=== PATIENT | male | born 1940 | race Caucasian/White ===

== ENCOUNTER 2025-06-27 13:13 | Inpatient (IN) | payer MEDICARE, OTHER ==
[~2025-06-27 13:13] MED LIST: Iopamidol-370 76% 500 ML MDV (1 ML CHARGE) ONE
[2025-06-27] MEDS ORDERED: niCARdipine 25 MG/10 ML SDV ONE (14:27)
[2025-06-27 14:30] LABS: #Basophils 0.05 10x3/uL (0.0-0.2); #Eosinophils 0.12 10x3/uL (0.0-0.7); #Monocytes 1.16 10x3/uL (0.11-0.59); #Neutrophils 5.54 10x3/uL (1.40-6.50); %Basophils 0.6 % (0.0-1.0); %Eosinophils 1.5 % (0.0-10.0); %Lymphocytes 15.9 % (21.0-51.0); %Monocytes 14.1 % (0.0-10.0); %Neutrophils 67.5 % (42.0-75.0); Hematocrit 42.8 % (42.0-52.0); Hemoglobin 13.4 g/dL (14.0-18.0); Mean Corpuscular Hemoglobin 29.0 pg (27.0-31.0); Mean Corpuscular Volume 92.6 fL (78.0-98.0); Platelet Count 258 10x3/uL (130-400); Red Blood Cell (RBC) Count 4.62 mill/uL (4.70-6.10); White Blood Cell (WBC) Count 8.20 10x3/uL (4.8-10.8)
[2025-06-27] MEDS ORDERED: Tenecteplase 50 MG ONE (14:50)
[2025-06-27 15:01] LABS: INR-International Normal Ratio 1.1; Prothrombin Time 14.4 sec (12.0-14.7)
[2025-06-27 15:02] LABS: PTT 28.4 sec (22.9-36.1)
[2025-06-27 15:09] LABS: Acetaminophen Less than 10 mcg/mL (Less than 10); Salicylate Less than 8.0 mg/dL (Less than 8.0)
[2025-06-27 15:21] LABS: Chloride 106 mmol/L (98-107); Potassium 4.6 mmol/L (3.5-5.1); Sodium 139 mmol/L (136-145)
[2025-06-27 15:22] LABS: Albumin 3.5 g/dL (3.1-4.5)
[2025-06-27 15:26] LABS: Alkaline Phosphatase 82 U/L (40-110); Bilirubin, Total 0.4 mg/dL (0.3-1.2); Calc. Creatinine Clearance 0 mL/min (70-130)
[2025-06-27 15:27] LABS: BUN (Urea Nitrogen) 26 mg/dL (8.4-25.7)
[2025-06-27 15:28] LABS: ALT (SGPT) 16 U/L (Less than 45)
[2025-06-27 15:29] LABS: AST (SGOT) 21 U/L (11-34)
[2025-06-27 16:05] LABS: Anion Gap 20 mmol/L (10-20); Calcium 9.2 mg/dL (7.8-10.44); Carbon Dioxide 21 mmol/L (23-31); Globulin 3.1 g/dL (2.4-3.5); Glucose 115 mg/dL (83-110)
[2025-06-27 16:36] LABS: Actual Bicarbonate (HCO3v) 26.2 mEq/L (22-28); Analyzer IN Cardio ER; Base Excess -0.7 mEq/L (-2.0 to +3.0); Calcium, Ionized (venous) 1.14 mmol/L (1.16-1.32); Chloride (VBG) 101 mmol/L (98-106); Hematocrit-VBG 44 % (42.0-52.0); Hemoglobin (Hb) 14.9 g/dL (12.6-17.4); Potassium (VBG) 5.32 mmol/L (3.70-5.30); Sodium 141 mmol/L (133-146)
[2025-06-27] MEDS ORDERED: hydrALAZINE 20 MG/ML VIAL SLOW IVP PRN (16:36)
[2025-06-27] MEDS ORDERED: Communication Order-Pharmacy FS SCH (16:36)
[2025-06-27] MEDS ORDERED: Acetaminophen 325 MG TAB PO PRN (16:36)
[2025-06-27] MEDS ORDERED: Mag-Al 1200 mg/1200 mg/30 ML UDCUP PO PRN (16:36)
[2025-06-27] MEDS ORDERED: Glucagon 1 MG/ML KIT IM PRN (23:45)
[2025-06-27] MEDS ORDERED: Dextrose 50% Abboject 50 ML SYRINGE SLOW IVP PRN (23:45)
[2025-06-28] MEDS: Ondansetron PF 4 MG/2 ML Vial IVP SCH (06:01)
[2025-06-28 15:51] LABS: #Basophils 0.05 10x3/uL (0.0-0.2); #Eosinophils Less than 0.03 10x3/uL (0.0-0.7); #Monocytes 1.02 10x3/uL (0.11-0.59); #Neutrophils 14.11 10x3/uL (1.40-6.50); %Basophils 0.3 % (0.0-1.0); %Eosinophils 0.1 % (0.0-10.0); %Lymphocytes 5.2 % (21.0-51.0); %Monocytes 6.3 % (0.0-10.0); %Neutrophils 87.9 % (42.0-75.0); Hematocrit 44.5 % (42.0-52.0); Hemoglobin 14.5 g/dL (14.0-18.0); Mean Corpuscular Hemoglobin 29.1 pg (27.0-31.0); Mean Corpuscular Volume 89.2 fL (78.0-98.0); Platelet Count 267 10x3/uL (130-400); Red Blood Cell (RBC) Count 4.99 mill/uL (4.70-6.10); White Blood Cell (WBC) Count 16.07 10x3/uL (4.8-10.8)
[2025-06-28 16:34] LABS: ALT (SGPT) 15 U/L (Less than 45); AST (SGOT) 27 U/L (11-34); Albumin 3.8 g/dL (3.1-4.5); Alkaline Phosphatase 88 U/L (40-110); Anion Gap 17 mmol/L (10-20); BUN (Urea Nitrogen) 20 mg/dL (8.4-25.7); Bilirubin, Total 0.7 mg/dL (0.3-1.2); Calc. Creatinine Clearance 83 mL/min (70-130); Calcium 9.9 mg/dL (7.8-10.44); Carbon Dioxide 22 mmol/L (23-31); Chloride 105 mmol/L (98-107); Globulin 3.9 g/dL (2.4-3.5); Glucose 124 mg/dL (83-110); Potassium 3.9 mmol/L (3.5-5.1); Sodium 140 mmol/L (136-145)
[2025-06-28] MEDS: Sodium Chloride 256 MEQ in Sterile Water 936 ML IV SCH (17:34)
[2025-06-28] MEDS: niCARdipine 25 MG in Sodium Chloride 0.9% 250 ML 250 ML IVPB PRN (17:39)
[2025-06-29 00:10] LABS: Chloride 105 mmol/L (98-107)
[2025-06-29 00:11] LABS: Calcium 9.9 mg/dL (7.8-10.44); Potassium 3.6 mmol/L (3.5-5.1); Sodium 141 mmol/L (136-145)
[2025-06-29 00:12] LABS: Glucose 139 mg/dL (83-110)
[2025-06-29 00:13] LABS: Anion Gap 17 mmol/L (10-20); Carbon Dioxide 23 mmol/L (23-31)
[2025-06-29 00:15] LABS: Calc. Creatinine Clearance 92 mL/min (70-130)
[2025-06-29 00:16] LABS: BUN (Urea Nitrogen) 17 mg/dL (8.4-25.7)
[2025-06-29] MEDS: diphenhydrAMINE 50 MG/ML VIAL IVP SCH (01:44)
[2025-06-29 05:12] LABS: Anion Gap 18 mmol/L (10-20); BUN (Urea Nitrogen) 19 mg/dL (8.4-25.7); Calc. Creatinine Clearance 88 mL/min (70-130); Calcium 10.0 mg/dL (7.8-10.44); Carbon Dioxide 22 mmol/L (23-31); Cardiac Risk 3.1 (Less than 4.5); Chloride 107 mmol/L (98-107); Cholesterol 172 mg/dl (< 200 Desired); Glucose 120 mg/dL (83-110); HDL Cholesterol 55 mg/dL (>60 Neg Risk); LDL Cholesterol, Calculated 106 mg/dL; Potassium 3.7 mmol/L (3.5-5.1); Sodium 143 mmol/L (136-145); Triglycerides 56 mg/dL (Less than 150)
[2025-06-29] MEDS: Lidocaine 1% (PF) 30 ML VIAL ONE (07:28)
[2025-06-29] MEDS: Water For Inject, Bacteriostat 30 ML ONE (09:00)
[2025-06-29 09:51] LABS: Anion Gap 18 mmol/L (10-20); BUN (Urea Nitrogen) 19 mg/dL (8.4-25.7); Calc. Creatinine Clearance 90 mL/min (70-130); Calcium 9.6 mg/dL (7.8-10.44); Carbon Dioxide 21 mmol/L (23-31); Chloride 109 mmol/L (98-107); Glucose 119 mg/dL (83-110); Potassium 3.9 mmol/L (3.5-5.1); Sodium 144 mmol/L (136-145)
[2025-06-29] MEDS: Pantoprazole 40 MG VIAL IVP SCH (11:11)
[2025-06-29 17:14] LABS: Anion Gap 12 mmol/L (10-20); BUN (Urea Nitrogen) 15 mg/dL (8.4-25.7); Calc. Creatinine Clearance 105 mL/min (70-130); Calcium 9.5 mg/dL (7.8-10.44); Carbon Dioxide 23 mmol/L (23-31); Chloride 112 mmol/L (98-107); Glucose 98 mg/dL (83-110); Potassium 3.4 mmol/L (3.5-5.1); Sodium 144 mmol/L (136-145)
[2025-06-29 17:15] LABS: Osmolality, Serum 298 mOsm/kg (280-301)
[2025-06-29 22:09] LABS: Anion Gap 18 mmol/L (10-20); BUN (Urea Nitrogen) 14 mg/dL (8.4-25.7); Calc. Creatinine Clearance 100 mL/min (70-130); Calcium 9.5 mg/dL (7.8-10.44); Carbon Dioxide 18 mmol/L (23-31); Chloride 112 mmol/L (98-107); Glucose 86 mg/dL (83-110); Potassium 3.6 mmol/L (3.5-5.1); Sodium 144 mmol/L (136-145)
[2025-06-30 00:53] LABS: Actual Bicarbonate (HCO3a) 22.3 mEq/L (22-28); Base Excess (BEa) 0.4 mEq/L (-2.0 to +3.0); CO2 Tension 29.1 mmHg (35.0-45.0); Calcium, Ionized (arterial) 1.20 mmol/L (1.12-1.30); Hematocrit-ABG 44 % (42.0-52.0); Hemoglobin (Hb) 15.0 g/dL (14.0-18.0); Potassium - ABG Lab 3.17 mmol/L (3.70-5.30); pH, Arterial 7.503 (7.35-7.45)
[2025-06-30 00:56] LABS: O2 Tension (PaO2), arterial 59.5 mmHg (> 60.0); Puncture Site Left Radial artery
[2025-06-30] MEDS: diphenhydrAMINE 50 MG/ML VIAL IVP SCH (01:16)
[2025-06-30 01:55] LABS: Osmolality, Serum 298 mOsm/kg (280-301)
[2025-06-30 03:50] LABS: Anion Gap 17 mmol/L (10-20); BUN (Urea Nitrogen) 16 mg/dL (8.4-25.7); Calc. Creatinine Clearance 90 mL/min (70-130); Calcium 9.6 mg/dL (7.8-10.44); Carbon Dioxide 18 mmol/L (23-31); Chloride 114 mmol/L (98-107); Glucose 94 mg/dL (83-110); Potassium 3.4 mmol/L (3.5-5.1); Sodium 146 mmol/L (136-145)
[2025-06-30 07:38] LABS: Osmolality, Serum 305 mOsm/kg (280-301)
[2025-06-30] MEDS ORDERED: Pharmacy to Dose: VANCOMYCIN IVPB PRN (08:57)
[2025-06-30] MEDS: cefTRIAXone\\ROCEPHIN 1 GM in Sodium Chloride 0.9% 100 ML IVPB SCH (09:27)
[2025-06-30] MEDS: Acetylcysteine 20% 200 MG/ML 30 ML VIAL INH SCH ×2 (09:30→13:14)
[2025-06-30 10:22] LABS: Anion Gap 16 mmol/L (10-20); BUN (Urea Nitrogen) 21 mg/dL (8.4-25.7); Calc. Creatinine Clearance 86 mL/min (70-130); Calcium 9.2 mg/dL (7.8-10.44); Carbon Dioxide 18 mmol/L (23-31); Chloride 116 mmol/L (98-107); Glucose 113 mg/dL (83-110); Potassium 3.2 mmol/L (3.5-5.1); Sodium 147 mmol/L (136-145)
[2025-06-30] MEDS: Potassium Chloride 20 MEQ in Premix 1 BAG IVPB SCH ×2 (10:28→19:24)
[2025-06-30] MEDS: VANCOMYCIN 1.75 GM/350 ML BAG 1.75 GM in Premix 1 BAG IVPB SCH (12:33)
[2025-06-30 14:05] LABS: Osmolality, Serum 310 mOsm/kg (280-301)
[2025-06-30 17:41] LABS: Potassium 3.2 mmol/L (3.5-5.1)
[2025-06-30 20:09] LABS: Osmolality, Serum 312 mOsm/kg (280-301)
[2025-06-30] MEDS: Vancomycin 1 GM in Premix 1 BAG IVPB SCH (21:13)
[2025-07-01 01:39] LABS: Osmolality, Serum 320 mOsm/kg (280-301)
[2025-07-01] MEDS: niCARdipine 25 MG in Sodium Chloride 0.9% 250 ML 250 ML IVPB PRN (05:23)
[2025-07-01 07:45] LABS: Vancomycin, Random 20.3 ug/mL (See Comment)
[2025-07-01 07:46] LABS: Calc. Creatinine Clearance 64.0 mL/min (70-130)
[2025-07-01 08:19] LABS: Osmolality, Serum 322 mOsm/kg (280-301)
[2025-07-01 09:47] LABS: Hematocrit 40.6 % (42.0-52.0); Hemoglobin 12.3 g/dL (14.0-18.0); Mean Corpuscular Hemoglobin 28.1 pg (27.0-31.0); Mean Corpuscular Volume 92.9 fL (78.0-98.0); Platelet Count 333 10x3/uL (130-400); Red Blood Cell (RBC) Count 4.37 mill/uL (4.70-6.10); White Blood Cell (WBC) Count 27.71 10x3/uL (4.8-10.8)
[2025-07-01 10:11] LABS: Anion Gap 15 mmol/L (10-20); BUN (Urea Nitrogen) 32 mg/dL (8.4-25.7); Calc. Creatinine Clearance 65 mL/min (70-130); Calcium 8.9 mg/dL (7.8-10.44); Carbon Dioxide 16 mmol/L (23-31); Chloride 126 mmol/L (98-107); Glucose 148 mg/dL (83-110); Potassium 3.0 mmol/L (3.5-5.1); Sodium 154 mmol/L (136-145)
[2025-07-01 10:20] LABS: Burr Cells SLIGHT = 2-5 cells HPF (0-1); Macrocytosis SLIGHT = 6-15 cells HPF (0-5); Platelet Adequacy Comment Platelets Normal; Polychromasia SLIGHT = 2-3 cells HPF (0-2)
[2025-07-01] MEDS: Vancomycin 1 GM/200 ML (FROZEN) BAG ONE (12:38)
[2025-07-01 13:24] LABS: Osmolality, Serum 323 mOsm/kg (280-301)
[2025-07-01] MEDS: Potassium Phosphate 22 MMOL in Sodium Chloride 0.9% 250 ML 250 ML IVPB SCH (14:42)
[2025-07-01 17:08] LABS: Anion Gap 14 mmol/L (10-20); BUN (Urea Nitrogen) 31 mg/dL (8.4-25.7); Calc. Creatinine Clearance 73 mL/min (70-130); Calcium 8.8 mg/dL (7.8-10.44); Carbon Dioxide 16 mmol/L (23-31); Chloride 127 mmol/L (98-107); Glucose 115 mg/dL (83-110); Potassium 2.9 mmol/L (3.5-5.1); Sodium 154 mmol/L (136-145)
[2025-07-01] MEDS: Potassium Chloride 20 MEQ in Premix 1 BAG IVPB SCH (18:32)
[2025-07-01] MEDS ORDERED: Mag-Al 1200 mg/1200 mg/30 ML UDCUP PER TUBE PRN (20:54)
[2025-07-01] MEDS: Aspirin 325 MG TAB PER TUBE SCH (21:23)
[2025-07-02 04:32] LABS: Hematocrit 38.0 % (42.0-52.0); Hemoglobin 12.1 g/dL (14.0-18.0); Mean Corpuscular Hemoglobin 28.5 pg (27.0-31.0); Mean Corpuscular Volume 89.4 fL (78.0-98.0); Platelet Count 320 10x3/uL (130-400); Red Blood Cell (RBC) Count 4.25 mill/uL (4.70-6.10); White Blood Cell (WBC) Count 26.03 10x3/uL (4.8-10.8)
[2025-07-02 04:42] LABS: Vancomycin, Random 14.4 ug/mL (See Comment)
[2025-07-02 04:52] LABS: ALT (SGPT) 16 U/L (Less than 45); AST (SGOT) 25 U/L (11-34); Albumin 2.4 g/dL (3.1-4.5); Alkaline Phosphatase 80 U/L (40-110); Anion Gap 15 mmol/L (10-20); BUN (Urea Nitrogen) 27 mg/dL (8.4-25.7); Bilirubin, Total 1.2 mg/dL (0.3-1.2); Calc. Creatinine Clearance 79 mL/min (70-130); Calcium 9.0 mg/dL (7.8-10.44); Carbon Dioxide 16 mmol/L (23-31); Chloride 127 mmol/L (98-107); Globulin 3.3 g/dL (2.4-3.5); Glucose 105 mg/dL (83-110); Magnesium 1.8 mg/dL (1.6-2.6); Potassium 3.8 mmol/L (3.5-5.1); Sodium 154 mmol/L (136-145)
[2025-07-02 04:57] LABS: Anisocytosis SLIGHT = 6-15 cells HPF (0-5); Platelet Adequacy Comment Platelets Normal
[2025-07-02] MEDS: Potassium Phosphate 15 MMOL in Sodium Chloride 0.9% 250 ML 250 ML IVPB SCH (05:28)
[2025-07-02] MEDS: Magnesium 2 GM/50 ML(in water) 2 GM in Premix 1 BAG IVPB SCH (08:25)
[2025-07-02] MEDS: Vancomycin 1.25 GM / NS 250 ML VIAL-2-BAG IVPB SCH (11:40)
[2025-07-02] MEDS: Losartan 25 MG TAB PER TUBE SCH (17:37)
[2025-07-03 04:20] LABS: #Basophils 0.04 10x3/uL (0.0-0.2); #Eosinophils 0.10 10x3/uL (0.0-0.7); #Monocytes 1.28 10x3/uL (0.11-0.59); #Neutrophils 20.90 10x3/uL (1.40-6.50); %Basophils 0.2 % (0.0-1.0); %Eosinophils 0.4 % (0.0-10.0); %Lymphocytes 3.9 % (21.0-51.0); %Monocytes 5.5 % (0.0-10.0); %Neutrophils 89.3 % (42.0-75.0); Hematocrit 39.0 % (42.0-52.0); Hemoglobin 12.8 g/dL (14.0-18.0); Mean Corpuscular Hemoglobin 29.1 pg (27.0-31.0); Mean Corpuscular Volume 88.6 fL (78.0-98.0); Platelet Count 343 10x3/uL (130-400); Red Blood Cell (RBC) Count 4.40 mill/uL (4.70-6.10); White Blood Cell (WBC) Count 23.39 10x3/uL (4.8-10.8)
[2025-07-03 04:40] LABS: Anion Gap 13 mmol/L (10-20); BUN (Urea Nitrogen) 30 mg/dL (8.4-25.7); Calc. Creatinine Clearance 80 mL/min (70-130); Calcium 9.0 mg/dL (7.8-10.44); Carbon Dioxide 19 mmol/L (23-31); Chloride 125 mmol/L (98-107); Glucose 130 mg/dL (83-110); Magnesium 2.0 mg/dL (1.6-2.6); Potassium 3.3 mmol/L (3.5-5.1); Sodium 154 mmol/L (136-145)
[2025-07-03] MEDS: Losartan 25 MG TAB PER TUBE SCH (08:20)
[2025-07-03] MEDS: Magnesium 2 GM/50 ML(in water) 2 GM in Premix 1 BAG IVPB SCH (10:20)
[2025-07-03] MEDS: hydrALAZINE 20 MG/ML VIAL SLOW IVP PRN (12:14)
[2025-07-03] MEDS ORDERED: PHOS-NAK 1 PKT PACK PO PRN (13:45)
[2025-07-03] MEDS: Acetylcysteine 20% 200 MG/ML 30 ML VIAL INH SCH (14:18)
[2025-07-03] MEDS: Potassium Chloride 20 MEQ in Premix 1 BAG IVPB PRN (14:49)
[2025-07-03] MEDS: Etomidate 40 MG (20 mL) VIAL IVP SCH (20:30)
[2025-07-03] MEDS ORDERED: Etomidate 40 MG (20 mL) VIAL ONE (20:33)
[2025-07-03] MEDS ORDERED: Propofol BOLUS 1,000 MG/100 ML VIAL IV PRN (20:45)
[2025-07-03] MEDS ORDERED: NOREPINEPHRINE 8 MG/250 ML-D5W 250 ML IVPB SCH (20:45)
[2025-07-03] MEDS ORDERED: DISCONTINUE PREVIOUS NARCOTIC PAIN MEDICATIONS AND BENZODIAZEPINES FS SCH (20:45)
[2025-07-03] MEDS ORDERED: Fentanyl BOLUS 100 ML IVPB PRN (20:45)
[2025-07-03 21:17] LABS: Actual Bicarbonate (HCO3a) 22.3 mEq/L (22-28); Base Excess (BEa) -2.1 mEq/L (-2.0 to +3.0); CO2 Tension 37.2 mmHg (35.0-45.0); Calcium, Ionized (arterial) 1.20 mmol/L (1.12-1.30); Hematocrit-ABG 41 % (42.0-52.0); Hemoglobin (Hb) 14.1 g/dL (14.0-18.0); O2 Tension (PaO2), arterial 89.7 mmHg (> 60.0); Potassium - ABG Lab 3.78 mmol/L (3.70-5.30); pH, Arterial 7.396 (7.35-7.45)
[2025-07-03 21:21] LABS: Puncture Site Right Radial artery
[2025-07-03] MEDS: Norepinephrine 8 MG/0.9% NS 250 ML IVPB SCH (21:35)
[2025-07-04] MEDS: Albumin 25% 25 GM (100 mL) BOT IVPB SCH (04:26)
[2025-07-04 05:52] LABS: #Basophils 0.04 10x3/uL (0.0-0.2); #Eosinophils 0.15 10x3/uL (0.0-0.7); #Monocytes 1.53 10x3/uL (0.11-0.59); #Neutrophils 13.14 10x3/uL (1.40-6.50); %Basophils 0.2 % (0.0-1.0); %Eosinophils 0.9 % (0.0-10.0); %Lymphocytes 6.3 % (21.0-51.0); %Monocytes 9.5 % (0.0-10.0); %Neutrophils 81.9 % (42.0-75.0); Hematocrit 36.4 % (42.0-52.0); Hemoglobin 11.3 g/dL (14.0-18.0); Mean Corpuscular Hemoglobin 28.3 pg (27.0-31.0); Mean Corpuscular Volume 91.2 fL (78.0-98.0); Platelet Count 333 10x3/uL (130-400); Red Blood Cell (RBC) Count 3.99 mill/uL (4.70-6.10); White Blood Cell (WBC) Count 16.07 10x3/uL (4.8-10.8)
[2025-07-04 06:20] LABS: Vancomycin, Random 14.8 ug/mL (See Comment)
[2025-07-04 06:22] LABS: Anion Gap 10 mmol/L (10-20); BUN (Urea Nitrogen) 33 mg/dL (8.4-25.7); Calc. Creatinine Clearance 67 mL/min (70-130); Calcium 8.6 mg/dL (7.8-10.44); Carbon Dioxide 25 mmol/L (23-31); Chloride 122 mmol/L (98-107); Glucose 101 mg/dL (83-110); Potassium 3.5 mmol/L (3.5-5.1); Sodium 153 mmol/L (136-145)
[2025-07-04] MEDS: Lidocaine 1% (PF) 30 ML VIAL ONE (09:15)
[2025-07-04] MEDS: Vancomycin 1.5 GM / NS 500ML VIAL-2-BAG IVPB SCH (11:45)
[2025-07-04] MEDS: Lidocaine 1% (PF) 30 ML VIAL FS SCH (11:45)
[2025-07-04 15:59] LABS: BF RBC Count - Manual 43 /cu.mm; BF WBC/Nonhematics Ct.-Manual 530 /cu.mm
[2025-07-04 17:24] LABS: BF Segmented Neutrophils 74 %; Cell Count Non Hematic 6 %
[2025-07-04] MEDS: Glycopyrrolate 0.4 MG/ 2 ML VIAL SLOW IVP SCH (22:03)
[2025-07-04] MEDS: Scopolamine 1 mg/72 hour Patch TD SCH (23:04)
[2025-07-05 04:48] LABS: Vancomycin, Random 20.1 ug/mL (See Comment)
[2025-07-05 08:37] LABS: #Basophils 0.05 10x3/uL (0.0-0.2); #Eosinophils 0.45 10x3/uL (0.0-0.7); #Monocytes 1.73 10x3/uL (0.11-0.59); #Neutrophils 11.24 10x3/uL (1.40-6.50); %Basophils 0.3 % (0.0-1.0); %Eosinophils 3.1 % (0.0-10.0); %Lymphocytes 6.8 % (21.0-51.0); %Monocytes 11.8 % (0.0-10.0); %Neutrophils 76.4 % (42.0-75.0); Hematocrit 38.7 % (42.0-52.0); Hemoglobin 11.7 g/dL (14.0-18.0); Mean Corpuscular Hemoglobin 28.3 pg (27.0-31.0); Mean Corpuscular Volume 93.7 fL (78.0-98.0); Platelet Count 238 10x3/uL (130-400); Red Blood Cell (RBC) Count 4.13 mill/uL (4.70-6.10); White Blood Cell (WBC) Count 14.70 10x3/uL (4.8-10.8)
[2025-07-05 09:07] LABS: ALT (SGPT) 47 U/L (Less than 45); AST (SGOT) 60 U/L (11-34); Albumin 2.0 g/dL (3.1-4.5); Alkaline Phosphatase 236 U/L (40-110); Anion Gap 13 mmol/L (10-20); BUN (Urea Nitrogen) 33 mg/dL (8.4-25.7); Bilirubin, Total 0.6 mg/dL (0.3-1.2); Calc. Creatinine Clearance 70 mL/min (70-130); Calcium 8.6 mg/dL (7.8-10.44); Carbon Dioxide 21 mmol/L (23-31); Chloride 121 mmol/L (98-107); Globulin 3.4 g/dL (2.4-3.5); Glucose 94 mg/dL (83-110); Potassium 4.0 mmol/L (3.5-5.1); Sodium 151 mmol/L (136-145)
[2025-07-05] MEDS: Vancomycin 1.25 GM / NS 250 ML VIAL-2-BAG IVPB SCH (11:16)
[2025-07-05] MEDS: Senokot S 8.6-50 MG TAB PER TUBE SCH ×2 (11:21)
[2025-07-05] MEDS: Glycopyrrolate 0.4 MG/ 2 ML VIAL SLOW IVP SCH (22:08)
[2025-07-06 05:15] LABS: #Basophils 0.04 10x3/uL (0.0-0.2); #Eosinophils 0.49 10x3/uL (0.0-0.7); #Monocytes 1.53 10x3/uL (0.11-0.59); #Neutrophils 7.10 10x3/uL (1.40-6.50); %Basophils 0.4 % (0.0-1.0); %Eosinophils 4.7 % (0.0-10.0); %Lymphocytes 9.9 % (21.0-51.0); %Monocytes 14.7 % (0.0-10.0); %Neutrophils 68.5 % (42.0-75.0); Hematocrit 34.4 % (42.0-52.0); Hemoglobin 10.4 g/dL (14.0-18.0); Mean Corpuscular Hemoglobin 28.3 pg (27.0-31.0); Mean Corpuscular Volume 93.5 fL (78.0-98.0); Platelet Count 210 10x3/uL (130-400); Red Blood Cell (RBC) Count 3.68 mill/uL (4.70-6.10); White Blood Cell (WBC) Count 10.38 10x3/uL (4.8-10.8)
[2025-07-06 05:33] LABS: Anion Gap 14 mmol/L (10-20); BUN (Urea Nitrogen) 33 mg/dL (8.4-25.7); Calc. Creatinine Clearance 70 mL/min (70-130); Calcium 8.2 mg/dL (7.8-10.44); Carbon Dioxide 20 mmol/L (23-31); Chloride 118 mmol/L (98-107); Glucose 104 mg/dL (83-110); Potassium 3.8 mmol/L (3.5-5.1); Sodium 148 mmol/L (136-145)
[2025-07-06] MEDS: Sodium Chloride 256 MEQ in Sterile Water 936 ML IV SCH (09:32)
[2025-07-06] MEDS: DC Sedation Protocol FS ONE (12:08)
[2025-07-06 12:55] LABS: Anion Gap 12 mmol/L (10-20); BUN (Urea Nitrogen) 33 mg/dL (8.4-25.7); Calc. Creatinine Clearance 71 mL/min (70-130); Calcium 8.3 mg/dL (7.8-10.44); Carbon Dioxide 21 mmol/L (23-31); Chloride 119 mmol/L (98-107); Glucose 96 mg/dL (83-110); Potassium 3.8 mmol/L (3.5-5.1); Sodium 148 mmol/L (136-145)
[2025-07-06 18:29] LABS: Anion Gap 12 mmol/L (10-20); BUN (Urea Nitrogen) 35 mg/dL (8.4-25.7); Calc. Creatinine Clearance 74 mL/min (70-130); Calcium 8.6 mg/dL (7.8-10.44); Carbon Dioxide 21 mmol/L (23-31); Chloride 118 mmol/L (98-107); Glucose 103 mg/dL (83-110); Potassium 3.8 mmol/L (3.5-5.1); Sodium 147 mmol/L (136-145)
[2025-07-06] MEDS: Etomidate 40 MG (20 mL) VIAL IVP SCH (18:44)
[2025-07-06] MEDS: Ventilator Sedation Protocol 1 EACH FS ONE (18:46)
[2025-07-06] MEDS ORDERED: Propofol BOLUS 1,000 MG/100 ML VIAL IV PRN (19:00)
[2025-07-06] MEDS ORDERED: DISCONTINUE PREVIOUS NARCOTIC PAIN MEDICATIONS AND BENZODIAZEPINES FS SCH (19:00)
[2025-07-06] MEDS ORDERED: Fentanyl BOLUS 100 ML IVPB PRN (19:00)
[2025-07-06 20:14] LABS: Actual Bicarbonate (HCO3a) 19.5 mEq/L (22-28); Base Excess (BEa) -3.5 mEq/L (-2.0 to +3.0); CO2 Tension 28.8 mmHg (35.0-45.0); Calcium, Ionized (arterial) 1.17 mmol/L (1.12-1.30); Hematocrit-ABG 34 % (42.0-52.0); Hemoglobin (Hb) 11.6 g/dL (14.0-18.0); O2 Tension (PaO2), arterial 66.3 mmHg (> 60.0); Potassium - ABG Lab 3.57 mmol/L (3.70-5.30); pH, Arterial 7.448 (7.35-7.45)
[2025-07-06 20:15] LABS: Puncture Site Right Radial artery
[2025-07-06] MEDS: Enoxaparin 40 MG (0.4 mL) SYRINGE SC SCH (21:45)
[2025-07-07 01:02] LABS: Anion Gap 11 mmol/L (10-20); BUN (Urea Nitrogen) 35 mg/dL (8.4-25.7); Calc. Creatinine Clearance 74 mL/min (70-130); Calcium 8.3 mg/dL (7.8-10.44); Carbon Dioxide 21 mmol/L (23-31); Chloride 119 mmol/L (98-107); Glucose 114 mg/dL (83-110); Potassium 3.3 mmol/L (3.5-5.1); Sodium 148 mmol/L (136-145)
[2025-07-07 04:47] LABS: #Basophils 0.03 10x3/uL (0.0-0.2); #Eosinophils 0.43 10x3/uL (0.0-0.7); #Monocytes 1.32 10x3/uL (0.11-0.59); #Neutrophils 7.93 10x3/uL (1.40-6.50); %Basophils 0.3 % (0.0-1.0); %Eosinophils 3.9 % (0.0-10.0); %Lymphocytes 9.2 % (21.0-51.0); %Monocytes 12.1 % (0.0-10.0); %Neutrophils 72.8 % (42.0-75.0); Hematocrit 31.2 % (42.0-52.0); Hemoglobin 9.5 g/dL (14.0-18.0); Mean Corpuscular Hemoglobin 28.4 pg (27.0-31.0); Mean Corpuscular Volume 93.4 fL (78.0-98.0); Platelet Count 231 10x3/uL (130-400); Red Blood Cell (RBC) Count 3.34 mill/uL (4.70-6.10); White Blood Cell (WBC) Count 10.90 10x3/uL (4.8-10.8)
[2025-07-07 06:32] LABS: Anion Gap 11 mmol/L (10-20); BUN (Urea Nitrogen) 37 mg/dL (8.4-25.7); Calc. Creatinine Clearance 72 mL/min (70-130); Calcium 8.0 mg/dL (7.8-10.44); Carbon Dioxide 22 mmol/L (23-31); Chloride 120 mmol/L (98-107); Glucose 109 mg/dL (83-110); Potassium 3.5 mmol/L (3.5-5.1); Sodium 149 mmol/L (136-145)
[2025-07-07] MEDS: Sodium Chloride 256 MEQ in Sterile Water 936 ML IV SCH (10:24)
[2025-07-07] MEDS: Bisacodyl 10 MG SUPP PR PRN (18:00)
[2025-07-07 18:21] LABS: Anion Gap 11 mmol/L (10-20); BUN (Urea Nitrogen) 33 mg/dL (8.4-25.7); Calc. Creatinine Clearance 77 mL/min (70-130); Calcium 8.3 mg/dL (7.8-10.44); Carbon Dioxide 20 mmol/L (23-31); Chloride 121 mmol/L (98-107); Glucose 132 mg/dL (83-110); Potassium 3.8 mmol/L (3.5-5.1); Sodium 148 mmol/L (136-145)
[2025-07-08 01:13] LABS: Anion Gap 11 mmol/L (10-20); BUN (Urea Nitrogen) 34 mg/dL (8.4-25.7); Calc. Creatinine Clearance 74 mL/min (70-130); Calcium 8.1 mg/dL (7.8-10.44); Carbon Dioxide 21 mmol/L (23-31); Chloride 121 mmol/L (98-107); Glucose 111 mg/dL (83-110); Potassium 3.8 mmol/L (3.5-5.1); Sodium 149 mmol/L (136-145)
[2025-07-08 04:56] LABS: #Basophils 0.03 10x3/uL (0.0-0.2); #Eosinophils 0.44 10x3/uL (0.0-0.7); #Monocytes 1.16 10x3/uL (0.11-0.59); #Neutrophils 5.59 10x3/uL (1.40-6.50); %Basophils 0.3 % (0.0-1.0); %Eosinophils 5.1 % (0.0-10.0); %Lymphocytes 11.8 % (21.0-51.0); %Monocytes 13.5 % (0.0-10.0); %Neutrophils 65.0 % (42.0-75.0); Hematocrit 30.0 % (42.0-52.0); Hemoglobin 9.1 g/dL (14.0-18.0); Mean Corpuscular Hemoglobin 28.5 pg (27.0-31.0); Mean Corpuscular Volume 94.0 fL (78.0-98.0); Platelet Count 235 10x3/uL (130-400); Red Blood Cell (RBC) Count 3.19 mill/uL (4.70-6.10); White Blood Cell (WBC) Count 8.61 10x3/uL (4.8-10.8)
[2025-07-08 06:11] LABS: Anion Gap 11 mmol/L (10-20); BUN (Urea Nitrogen) 34 mg/dL (8.4-25.7); Calc. Creatinine Clearance 80 mL/min (70-130); Calcium 8.2 mg/dL (7.8-10.44); Carbon Dioxide 20 mmol/L (23-31); Chloride 122 mmol/L (98-107); Glucose 117 mg/dL (83-110); Potassium 3.8 mmol/L (3.5-5.1); Sodium 149 mmol/L (136-145)
[2025-07-08 12:30] LABS: Anion Gap 14 mmol/L (10-20); BUN (Urea Nitrogen) 33 mg/dL (8.4-25.7); Calc. Creatinine Clearance 79 mL/min (70-130); Calcium 8.3 mg/dL (7.8-10.44); Carbon Dioxide 20 mmol/L (23-31); Chloride 122 mmol/L (98-107); Glucose 126 mg/dL (83-110); Potassium 3.8 mmol/L (3.5-5.1); Sodium 152 mmol/L (136-145)
[2025-07-08 18:41] LABS: Anion Gap 12 mmol/L (10-20); BUN (Urea Nitrogen) 31 mg/dL (8.4-25.7); Calc. Creatinine Clearance 80 mL/min (70-130); Calcium 8.2 mg/dL (7.8-10.44); Carbon Dioxide 20 mmol/L (23-31); Chloride 122 mmol/L (98-107); Glucose 118 mg/dL (83-110); Potassium 3.7 mmol/L (3.5-5.1); Sodium 150 mmol/L (136-145)
[2025-07-08] MEDS: Losartan 25 MG TAB PER TUBE SCH (20:08)
[2025-07-09 01:12] LABS: Anion Gap 11 mmol/L (10-20); BUN (Urea Nitrogen) 29 mg/dL (8.4-25.7); Calc. Creatinine Clearance 87 mL/min (70-130); Calcium 8.3 mg/dL (7.8-10.44); Carbon Dioxide 20 mmol/L (23-31); Chloride 121 mmol/L (98-107); Glucose 111 mg/dL (83-110); Potassium 3.8 mmol/L (3.5-5.1); Sodium 148 mmol/L (136-145)
[2025-07-09 04:21] LABS: #Basophils 0.04 10x3/uL (0.0-0.2); #Eosinophils 0.36 10x3/uL (0.0-0.7); #Monocytes 1.20 10x3/uL (0.11-0.59); #Neutrophils 7.29 10x3/uL (1.40-6.50); %Basophils 0.4 % (0.0-1.0); %Eosinophils 3.5 % (0.0-10.0); %Lymphocytes 11.3 % (21.0-51.0); %Monocytes 11.8 % (0.0-10.0); %Neutrophils 71.4 % (42.0-75.0); Hematocrit 30.9 % (42.0-52.0); Hemoglobin 9.1 g/dL (14.0-18.0); Mean Corpuscular Hemoglobin 27.7 pg (27.0-31.0); Mean Corpuscular Volume 94.2 fL (78.0-98.0); Platelet Count 249 10x3/uL (130-400); Red Blood Cell (RBC) Count 3.28 mill/uL (4.70-6.10); White Blood Cell (WBC) Count 10.20 10x3/uL (4.8-10.8)
[2025-07-09 05:17] LABS: Anion Gap 12 mmol/L (10-20); BUN (Urea Nitrogen) 30 mg/dL (8.4-25.7); Calc. Creatinine Clearance 80 mL/min (70-130); Calcium 8.2 mg/dL (7.8-10.44); Carbon Dioxide 21 mmol/L (23-31); Chloride 120 mmol/L (98-107); Glucose 114 mg/dL (83-110); Potassium 3.7 mmol/L (3.5-5.1); Sodium 149 mmol/L (136-145)
[2025-07-10 03:46] LABS: #Basophils 0.04 10x3/uL (0.0-0.2); #Eosinophils 0.44 10x3/uL (0.0-0.7); #Monocytes 1.04 10x3/uL (0.11-0.59); #Neutrophils 5.88 10x3/uL (1.40-6.50); %Basophils 0.5 % (0.0-1.0); %Eosinophils 5.1 % (0.0-10.0); %Lymphocytes 14.2 % (21.0-51.0); %Monocytes 11.9 % (0.0-10.0); %Neutrophils 67.5 % (42.0-75.0); Hematocrit 29.6 % (42.0-52.0); Hemoglobin 8.8 g/dL (14.0-18.0); Mean Corpuscular Hemoglobin 28.3 pg (27.0-31.0); Mean Corpuscular Volume 95.2 fL (78.0-98.0); Platelet Count 242 10x3/uL (130-400); Red Blood Cell (RBC) Count 3.11 mill/uL (4.70-6.10); White Blood Cell (WBC) Count 8.71 10x3/uL (4.8-10.8)
[2025-07-10 04:14] LABS: Anion Gap 10 mmol/L (10-20); BUN (Urea Nitrogen) 27 mg/dL (8.4-25.7); Calc. Creatinine Clearance 86 mL/min (70-130); Calcium 8.0 mg/dL (7.8-10.44); Carbon Dioxide 20 mmol/L (23-31); Chloride 122 mmol/L (98-107); Glucose 93 mg/dL (83-110); Potassium 3.8 mmol/L (3.5-5.1); Sodium 148 mmol/L (136-145)
[2025-07-10] MEDS: Lidocaine 1% w/Epinephrine 1:100K 20 ML VIAL ONE (09:40)
[2025-07-10] MEDS ORDERED: fentaNYL PF 100 MCG/2 ML SYRINGE ONE (09:43)
[2025-07-10] MEDS: Lidocaine 1% w/Epinephrine 1:100K 20 ML VIAL FS SCH (10:34)
[2025-07-11 05:28] LABS: #Basophils 0.07 10x3/uL (0.0-0.2); #Eosinophils 0.37 10x3/uL (0.0-0.7); #Monocytes 0.91 10x3/uL (0.11-0.59); #Neutrophils 5.71 10x3/uL (1.40-6.50); %Basophils 0.9 % (0.0-1.0); %Eosinophils 4.6 % (0.0-10.0); %Lymphocytes 11.8 % (21.0-51.0); %Monocytes 11.3 % (0.0-10.0); %Neutrophils 70.8 % (42.0-75.0); Hematocrit 31.4 % (42.0-52.0); Hemoglobin 9.3 g/dL (14.0-18.0); Mean Corpuscular Hemoglobin 28.6 pg (27.0-31.0); Mean Corpuscular Volume 96.6 fL (78.0-98.0); Platelet Count 239 10x3/uL (130-400); Red Blood Cell (RBC) Count 3.25 mill/uL (4.70-6.10); White Blood Cell (WBC) Count 8.06 10x3/uL (4.8-10.8)
[2025-07-11 05:48] LABS: Anion Gap 10 mmol/L (10-20); BUN (Urea Nitrogen) 23 mg/dL (8.4-25.7); Calc. Creatinine Clearance 94 mL/min (70-130); Calcium 8.3 mg/dL (7.8-10.44); Carbon Dioxide 21 mmol/L (23-31); Chloride 120 mmol/L (98-107); Glucose 90 mg/dL (83-110); Potassium 3.9 mmol/L (3.5-5.1); Sodium 147 mmol/L (136-145)
[2025-07-12] MEDS: Mupirocin 1 GM TUBE NASAL DECOLONIZATION NASAL SCH (09:30)
[2025-07-12 13:07] LABS: Anion Gap 12 mmol/L (10-20); BUN (Urea Nitrogen) 23 mg/dL (8.4-25.7); Calc. Creatinine Clearance 97 mL/min (70-130); Calcium 8.3 mg/dL (7.8-10.44); Carbon Dioxide 22 mmol/L (23-31); Chloride 116 mmol/L (98-107); Glucose 116 mg/dL (83-110); Potassium 3.3 mmol/L (3.5-5.1); Sodium 147 mmol/L (136-145)
[2025-07-12] MEDS: QUEtiapine 25 MG TAB PO SCH (20:01)
[2025-07-13 08:39] LABS: Anion Gap 12 mmol/L (10-20); BUN (Urea Nitrogen) 21 mg/dL (8.4-25.7); Calc. Creatinine Clearance 88 mL/min (70-130); Calcium 8.2 mg/dL (7.8-10.44); Carbon Dioxide 21 mmol/L (23-31); Chloride 116 mmol/L (98-107); Glucose 98 mg/dL (83-110); Potassium 3.7 mmol/L (3.5-5.1); Sodium 145 mmol/L (136-145)
[2025-07-14 05:21] LABS: #Basophils 0.05 10x3/uL (0.0-0.2); #Eosinophils 0.43 10x3/uL (0.0-0.7); #Monocytes 1.08 10x3/uL (0.11-0.59); #Neutrophils 8.78 10x3/uL (1.40-6.50); %Basophils 0.4 % (0.0-1.0); %Eosinophils 3.8 % (0.0-10.0); %Lymphocytes 8.4 % (21.0-51.0); %Monocytes 9.5 % (0.0-10.0); %Neutrophils 77.3 % (42.0-75.0); Hematocrit 29.2 % (42.0-52.0); Hemoglobin 9.0 g/dL (14.0-18.0); Mean Corpuscular Hemoglobin 28.8 pg (27.0-31.0); Mean Corpuscular Volume 93.3 fL (78.0-98.0); Platelet Count 320 10x3/uL (130-400); Red Blood Cell (RBC) Count 3.13 mill/uL (4.70-6.10); White Blood Cell (WBC) Count 11.37 10x3/uL (4.8-10.8)
[2025-07-14 05:34] LABS: Anion Gap 10 mmol/L (10-20); BUN (Urea Nitrogen) 22 mg/dL (8.4-25.7); Calc. Creatinine Clearance 105 mL/min (70-130); Calcium 8.2 mg/dL (7.8-10.44); Carbon Dioxide 25 mmol/L (23-31); Chloride 111 mmol/L (98-107); Glucose 113 mg/dL (83-110); Potassium 3.5 mmol/L (3.5-5.1); Sodium 142 mmol/L (136-145)
[2025-07-15 03:43] LABS: #Basophils 0.05 10x3/uL (0.0-0.2); #Eosinophils 0.37 10x3/uL (0.0-0.7); #Monocytes 0.94 10x3/uL (0.11-0.59); #Neutrophils 5.39 10x3/uL (1.40-6.50); %Basophils 0.6 % (0.0-1.0); %Eosinophils 4.8 % (0.0-10.0); %Lymphocytes 12.0 % (21.0-51.0); %Monocytes 12.2 % (0.0-10.0); %Neutrophils 69.9 % (42.0-75.0); Hematocrit 28.3 % (42.0-52.0); Hemoglobin 8.8 g/dL (14.0-18.0); Mean Corpuscular Hemoglobin 28.8 pg (27.0-31.0); Mean Corpuscular Volume 92.5 fL (78.0-98.0); Platelet Count 315 10x3/uL (130-400); Red Blood Cell (RBC) Count 3.06 mill/uL (4.70-6.10); White Blood Cell (WBC) Count 7.72 10x3/uL (4.8-10.8)
[2025-07-15 03:55] LABS: Anion Gap 9 mmol/L (10-20); BUN (Urea Nitrogen) 17 mg/dL (8.4-25.7); Calc. Creatinine Clearance 115 mL/min (70-130); Calcium 8.2 mg/dL (7.8-10.44); Carbon Dioxide 25 mmol/L (23-31); Chloride 111 mmol/L (98-107); Glucose 106 mg/dL (83-110); Potassium 3.4 mmol/L (3.5-5.1); Sodium 142 mmol/L (136-145)
[2025-07-16 04:30] LABS: #Basophils 0.05 10x3/uL (0.0-0.2); #Eosinophils 0.41 10x3/uL (0.0-0.7); #Monocytes 0.96 10x3/uL (0.11-0.59); #Neutrophils 5.05 10x3/uL (1.40-6.50); %Basophils 0.7 % (0.0-1.0); %Eosinophils 5.4 % (0.0-10.0); %Lymphocytes 14.9 % (21.0-51.0); %Monocytes 12.6 % (0.0-10.0); %Neutrophils 66.0 % (42.0-75.0); Hematocrit 29.3 % (42.0-52.0); Hemoglobin 9.3 g/dL (14.0-18.0); Mean Corpuscular Hemoglobin 28.8 pg (27.0-31.0); Mean Corpuscular Volume 90.7 fL (78.0-98.0); Platelet Count 344 10x3/uL (130-400); Red Blood Cell (RBC) Count 3.23 mill/uL (4.70-6.10); White Blood Cell (WBC) Count 7.64 10x3/uL (4.8-10.8)
[2025-07-16 04:43] LABS: Anion Gap 12 mmol/L (10-20); BUN (Urea Nitrogen) 16 mg/dL (8.4-25.7); Calc. Creatinine Clearance 107 mL/min (70-130); Calcium 8.5 mg/dL (7.8-10.44); Carbon Dioxide 26 mmol/L (23-31); Chloride 108 mmol/L (98-107); Glucose 101 mg/dL (83-110); Potassium 3.7 mmol/L (3.5-5.1); Sodium 142 mmol/L (136-145)
[2025-07-16 07:51] LABS: ALT (SGPT) 28 U/L (Less than 45); AST (SGOT) 52 U/L (11-34); Albumin 2.0 g/dL (3.1-4.5); Alkaline Phosphatase 422 U/L (40-110); Bilirubin, Total 0.6 mg/dL (0.3-1.2); Globulin 3.5 g/dL (2.4-3.5)
[2025-07-16 08:17] LABS: Magnesium 1.8 mg/dL (1.6-2.6)
[2025-07-16] MEDS: Magnesium 2 GM/50 ML(in water) 2 GM in Premix 1 BAG IVPB PRN (09:12)
[2025-07-17 04:17] LABS: #Basophils 0.06 10x3/uL (0.0-0.2); #Eosinophils 0.25 10x3/uL (0.0-0.7); #Monocytes 1.19 10x3/uL (0.11-0.59); #Neutrophils 8.77 10x3/uL (1.40-6.50); %Basophils 0.5 % (0.0-1.0); %Eosinophils 2.2 % (0.0-10.0); %Lymphocytes 8.2 % (21.0-51.0); %Monocytes 10.6 % (0.0-10.0); %Neutrophils 78.1 % (42.0-75.0); Hematocrit 32.7 % (42.0-52.0); Hemoglobin 10.2 g/dL (14.0-18.0); Mean Corpuscular Hemoglobin 28.7 pg (27.0-31.0); Mean Corpuscular Volume 92.1 fL (78.0-98.0); Platelet Count 426 10x3/uL (130-400); Red Blood Cell (RBC) Count 3.55 mill/uL (4.70-6.10); White Blood Cell (WBC) Count 11.23 10x3/uL (4.8-10.8)
[2025-07-17 04:31] LABS: Anion Gap 13 mmol/L (10-20); BUN (Urea Nitrogen) 17 mg/dL (8.4-25.7); Calc. Creatinine Clearance 120 mL/min (70-130); Calcium 8.2 mg/dL (7.8-10.44); Carbon Dioxide 25 mmol/L (23-31); Chloride 107 mmol/L (98-107); Glucose 115 mg/dL (83-110); Potassium 3.4 mmol/L (3.5-5.1); Sodium 142 mmol/L (136-145)
[2025-07-17] MEDS: Albumin 25% 25 GM (100 mL) BOT IVPB SCH (23:09)
[2025-07-18] MEDS: Albumin 25% 25 GM (100 mL) BOT IVPB SCH (02:08)
[2025-07-18 04:26] LABS: #Basophils 0.04 10x3/uL (0.0-0.2); #Eosinophils 0.38 10x3/uL (0.0-0.7); #Monocytes 1.12 10x3/uL (0.11-0.59); #Neutrophils 5.40 10x3/uL (1.40-6.50); %Basophils 0.5 % (0.0-1.0); %Eosinophils 4.6 % (0.0-10.0); %Lymphocytes 15.7 % (21.0-51.0); %Monocytes 13.5 % (0.0-10.0); %Neutrophils 65.3 % (42.0-75.0); Hematocrit 28.4 % (42.0-52.0); Hemoglobin 8.9 g/dL (14.0-18.0); Mean Corpuscular Hemoglobin 28.8 pg (27.0-31.0); Mean Corpuscular Volume 91.9 fL (78.0-98.0); Platelet Count 372 10x3/uL (130-400); Red Blood Cell (RBC) Count 3.09 mill/uL (4.70-6.10); White Blood Cell (WBC) Count 8.27 10x3/uL (4.8-10.8)
[2025-07-18 04:34] LABS: Anion Gap 11 mmol/L (10-20); BUN (Urea Nitrogen) 19 mg/dL (8.4-25.7); Calc. Creatinine Clearance 112 mL/min (70-130); Calcium 8.2 mg/dL (7.8-10.44); Carbon Dioxide 25 mmol/L (23-31); Chloride 109 mmol/L (98-107); Glucose 105 mg/dL (83-110); Potassium 3.3 mmol/L (3.5-5.1); Sodium 142 mmol/L (136-145)
[2025-07-18] MEDS: Potassium Bicarbonate/Cit Ac 20 MEQ TAB PER TUBE SCH (08:38)
[2025-07-18 12:41] LABS: Potassium 4.4 mmol/L (3.5-5.1)
[2025-07-19 05:23] LABS: #Basophils 0.08 10x3/uL (0.0-0.2); #Eosinophils 0.54 10x3/uL (0.0-0.7); #Monocytes 1.45 10x3/uL (0.11-0.59); #Neutrophils 9.19 10x3/uL (1.40-6.50); %Basophils 0.6 % (0.0-1.0); %Eosinophils 4.2 % (0.0-10.0); %Lymphocytes 11.2 % (21.0-51.0); %Monocytes 11.4 % (0.0-10.0); %Neutrophils 72.2 % (42.0-75.0); Hematocrit 32.1 % (42.0-52.0); Hemoglobin 9.8 g/dL (14.0-18.0); Mean Corpuscular Hemoglobin 28.3 pg (27.0-31.0); Mean Corpuscular Volume 92.8 fL (78.0-98.0); Platelet Count 465 10x3/uL (130-400); Red Blood Cell (RBC) Count 3.46 mill/uL (4.70-6.10); White Blood Cell (WBC) Count 12.73 10x3/uL (4.8-10.8)
[2025-07-19 05:42] LABS: Anion Gap 11 mmol/L (10-20); BUN (Urea Nitrogen) 20 mg/dL (8.4-25.7); Calc. Creatinine Clearance 97 mL/min (70-130); Calcium 8.8 mg/dL (7.8-10.44); Carbon Dioxide 27 mmol/L (23-31); Chloride 107 mmol/L (98-107); Glucose 100 mg/dL (83-110); Potassium 3.7 mmol/L (3.5-5.1); Sodium 141 mmol/L (136-145)
[2025-07-20 04:12] LABS: #Basophils 0.07 10x3/uL (0.0-0.2); #Eosinophils 0.54 10x3/uL (0.0-0.7); #Monocytes 1.36 10x3/uL (0.11-0.59); #Neutrophils 7.56 10x3/uL (1.40-6.50); %Basophils 0.6 % (0.0-1.0); %Eosinophils 5.0 % (0.0-10.0); %Lymphocytes 11.9 % (21.0-51.0); %Monocytes 12.5 % (0.0-10.0); %Neutrophils 69.6 % (42.0-75.0); Hematocrit 31.7 % (42.0-52.0); Hemoglobin 9.7 g/dL (14.0-18.0); Mean Corpuscular Hemoglobin 28.4 pg (27.0-31.0); Mean Corpuscular Volume 92.7 fL (78.0-98.0); Platelet Count 444 10x3/uL (130-400); Red Blood Cell (RBC) Count 3.42 mill/uL (4.70-6.10); White Blood Cell (WBC) Count 10.86 10x3/uL (4.8-10.8)
[2025-07-20 04:27] LABS: Anion Gap 16 mmol/L (10-20); BUN (Urea Nitrogen) 23 mg/dL (8.4-25.7); Calc. Creatinine Clearance 93 mL/min (70-130); Calcium 8.9 mg/dL (7.8-10.44); Carbon Dioxide 27 mmol/L (23-31); Chloride 104 mmol/L (98-107); Glucose 100 mg/dL (83-110); Potassium 3.8 mmol/L (3.5-5.1); Sodium 143 mmol/L (136-145)
[2025-07-21 14:47] VITALS: BMI 27.0
[2025-07-21] MEDS: Acetaminophen 325 MG TAB PER TUBE PRN (20:02)
[2025-07-22] MEDS: Glycopyrrolate 0.4 MG/ 2 ML VIAL SLOW IVP SCH (11:22)
[2025-07-22] MEDS: Scopolamine 1 mg/72 hour Patch TD SCH (21:53)
[2025-07-24 04:11] LABS: Hematocrit 34.5 % (42.0-52.0); Hemoglobin 10.7 g/dL (14.0-18.0); Mean Corpuscular Hemoglobin 28.5 pg (27.0-31.0); Mean Corpuscular Volume 91.8 fL (78.0-98.0); Platelet Count 474 10x3/uL (130-400); Red Blood Cell (RBC) Count 3.76 mill/uL (4.70-6.10); White Blood Cell (WBC) Count 13.71 10x3/uL (4.8-10.8)
[2025-07-24 04:29] LABS: Anion Gap 16 mmol/L (10-20); BUN (Urea Nitrogen) 32 mg/dL (8.4-25.7); Calc. Creatinine Clearance 73 mL/min (70-130); Calcium 9.3 mg/dL (7.8-10.44); Carbon Dioxide 28 mmol/L (23-31); Chloride 105 mmol/L (98-107); Glucose 111 mg/dL (83-110); Potassium 4.4 mmol/L (3.5-5.1); Sodium 145 mmol/L (136-145)
[2025-07-24 16:36] LABS: Bacteria/HPF None Seen HPF (None Seen); CAUTI Indications for Culture Fever or rigors; Glucose, Urine (Dipstick) Normal (Negative); Leukocyte 500 Leu/uL (Negative); Protein, Urine (Dipstick) 200 mg/dL (Neg-Trace); RBC/HPF 21-50 HPF (0-3); Specific Gravity, Urine 1.015 (1.002-1.036); WBC/HPF Greater than 50 HPF (0-3)
[2025-07-24 16:41] LABS: Urine Culture Reflex Yes Yes
[2025-07-24 19:06] VITALS: BMI 26.2
[2025-07-25 03:15] VITALS: TEMP 98.4
[2025-07-25 13:10] VITALS: BP 139/80
== END 2025-07-25 19:10 | DRG 3 ==
LOC: ERS 13:13 → EDBD 13:13 → ERHOLD 16:41 → CCU 06-28 00:50
PROVIDERS: ADMIT Internal Medicine; ATTEND Family Medicine
PROC: 3E03317 Introduction of Other Thrombolytic into Peripheral Vein, Percutaneous Approach (ICD-10-PCS; 2025-06-27)
PROC: 3E03329 Introduction of Other Anti-infective into Peripheral Vein, Percutaneous Approach (ICD-10-PCS; 2025-06-27)
PROC: 009630Z Drainage of Cerebral Ventricle with Drainage Device, Percutaneous Approach (ICD-10-PCS; 2025-06-29)
PROC: 4A133R1 Monitoring of Arterial Saturation, Peripheral, Percutaneous Approach (ICD-10-PCS; 2025-06-30)
PROC: 5A09457 Assistance with Respiratory Ventilation, 24-96 Consecutive Hours, Continuous Positive Airway Pressure (ICD-10-PCS; 2025-07-02)
PROC: 3E033XZ Introduction of Vasopressor into Peripheral Vein, Percutaneous Approach (ICD-10-PCS; 2025-07-03)
PROC: 0BH17EZ Insertion of Endotracheal Airway into Trachea, Via Natural or Artificial Opening (ICD-10-PCS; 2025-07-03)
PROC: 5A1955Z Respiratory Ventilation, Greater than 96 Consecutive Hours (ICD-10-PCS; 2025-07-04)
PROC: 30233J1 Transfusion of Nonautologous Serum Albumin into Peripheral Vein, Percutaneous Approach (ICD-10-PCS; 2025-07-04)
PROC: 0B110F4 Bypass Trachea to Cutaneous with Tracheostomy Device, Open Approach (ICD-10-PCS; principal; 2025-07-10)
PROC: 0DH63UZ Insertion of Feeding Device into Stomach, Percutaneous Approach (ICD-10-PCS; 2025-07-10)
DX: I63.9 Cerebral infarction, unspecified (principal); G93.41 Metabolic encephalopathy; G93.6 Cerebral edema; J96.01 Acute respiratory failure with hypoxia; G93.5 Compression of brain; J18.9 Pneumonia, unspecified organism; I16.1 Hypertensive emergency; N17.9 Acute kidney failure, unspecified; G91.1 Obstructive hydrocephalus; T17.890A Other foreign object in other parts of respiratory tract causing asphyxiation, initial encounter; E87.0 Hyperosmolality and hypernatremia; Z66 Do not resuscitate; R13.12 Dysphagia, oropharyngeal phase; I48.91 Unspecified atrial fibrillation; E87.6 Hypokalemia; R29.708 NIHSS score 8; I10 Essential (primary) hypertension; G89.29 Other chronic pain; G62.9 Polyneuropathy, unspecified; Z79.899 Other long term (current) drug therapy; Z85.850 Personal history of malignant neoplasm of thyroid; Z51.5 Encounter for palliative care; Z98.890 Other specified postprocedural states
CPT/HCPCS: 36415; 36416; 36600; 70450; 70496; 70498; 70551; 71045; 80048; 80053; 80061; 80202; 80307; 81001; 82565; 82805; 83036; 83735; 83930; 84100; 84443; 84484; 85025; 85027; 85060; 85610; 85730; 87070; 87077; 87086; 87186; 87205; 89051; 93005; 93306; 93970; 94002; 94003; 94640; 94660; 94760; 96374; 96375; A4217; B4087; J0132; J0360; J0696; J1200; J1650; J2003; J2060; J2248; J2250; J2270; J2272; J2470; J2704; J3010; J3101; J3373; J3375; J3475; J3480; J7030; J7050; J7120; P9047; Q9967